=== PATIENT | female | born 1960 | race Two or more races ===

== ENCOUNTER 2018-10-11 09:12 | Outpatient (CLI) | payer OTHER ==
[~2018-10-11] VITALS: Ht 167.6 cm; Wt 135.6 kg
[2018-10-11 12:43] VITALS: BP 121/61
[2018-10-11] MEDS ORDERED: VITAMIN D250000 UNI1 ORAL (12:50)
[2018-10-11] MEDS ORDERED: BUPROPION HCL75 MG PO (12:50)
[2018-10-11] MEDS ORDERED: CALCIUM600 M1 PO (12:50)
[2018-10-11] MEDS ORDERED: HUMULIN 70100 UNIT/3 SQ (12:50)
[2018-10-11] MEDS ORDERED: ENALAPRIL MALEAT5 MG ORAL (12:50)
[2018-10-11] MEDS ORDERED: PROPRANOLOL HCL10 MG ORAL (12:50)
[2018-10-11] MEDS ORDERED: MULTIVITAMINS1 EAC2 ORAL (12:50)
[2018-10-11] MEDS ORDERED: GABAPENTIN400 MG ORAL (12:50)
--- NOTE | 2018-10-11 15:55 | GI Initial Consult Note ---
History of Present Illness General Date patient seen: Oct 11, 2018 Time patient seen: 15:52 Referring physician: HMO Reason for Consultation: abdominal pain Present Illness HPI 58-year-old female presents today with complaint of a right lower quadrant abdominal pain and abdominal bloating. The patient had a colonoscopy either in 2015 or 2016 which she states was normal. Denies any unintentional weight loss or changes in dietary habits. No signs of abuse or neglect. Patient is not fall risk. Home Meds Reported Medications Gabapentin* (GABAPENTIN*) 400 Mg Capsule, 400 MG ORAL THREE TIMES A DAY, CAP 0 Refills 10/11/18 Multivitamins* (MULTIVITAMINS*) 1 Each Tablet, 1 TAB ORAL DAILY, TAB 0 Refills 10/11/18 Ergocalciferol (Vitamin D2)* (VITAMIN D*) 50,000 Unit Capsule, 35757 UNIT ORAL ONCE A WEEK, CAP 10/11/18 Enalapril Maleate* (ENALAPRIL MALEATE*) 5 Mg Tablet, ORAL EVERY 12 HOURS, TAB 10/11/18 Propranolol Hcl* (INDERAL*) 10 Mg Tablet, ORAL BID, #90 TAB 0 Refills 10/11/18 Bupropion Hcl* (BUPROPION HCL*) 75 Mg Tablet, 150 MG PO TID, TAB 10/11/18 Calcium Carbonate (CALCIUM) 600 Mg Tablet, 600 MG PO DAILY, TAB 10/11/18 Hum Insulin NPH/Reg Insulin Hm (Humulin 70/30 Kwikpen) 100 Unit/1 Ml Insuln.pen , SQ BIDAC, EA 10/11/18 Med list reviewed/reconciled: Yes Allergies: Coded Allergies: PENICILLINS (Verified Allergy, Mild, Itching, 10/11/18) Patient History History Provided By: Patient, Medical Record [facility] Narrative Hypertension Diabetes mellitus Back pain Denies any surgical history Pertinent Family History: none Social History: Denies: smoking, alcohol use, drug use, other Review of Systems All Other Systems: negative except mentioned in HPI Physical Exam Vital Signs Date Time Temp Pulse Resp B/P (MAP) Pulse Ox O2 Delivery O2 Flow Rate FiO2 10/11/18 12:43 97.8 61 16 121/61 93 Sp02 EP Interpretation: reviewed, normal General Appearance: well appearing, no apparent distress, alert Head: normocephalic EENT: PERRL/EOMI, normal ENT inspection Neck: supple Respiratory: normal breath sounds, no respiratory distress Cardiovascular: normal rate Gastrointestinal: normal inspection, non tender, soft, normal bowel sounds, non -distended Rectal: deferred Genitourinary: no CVA tenderness Musculoskeletal: normal inspection, back normal Neurologic: normal inspection, alert, oriented x3, responsive Psychiatric: normal inspection, judgement/insight normal, memory normal Skin: normal inspection, normal color, no rash, warm/dry, palpation normal, well hydrated Lymphatic: normal inspection, no adenopathy GI: Plan Problems: (1) Abdominal pain (2) Hypertension (3) Back pain (4) Diabetes mellitus (5) Abdominal bloating (6) GERD (gastroesophageal reflux disease) Plan EGD/to be scheduled pending PA, will contact patient. - NPO @ [place] day prior procedure explained. Will follow with additional recs post procedure. Omeprazole 40 mg daily Seen with Dr. Mahoney. Thank you for this patient referral. The patient was seen and examined at bedside and all new and available data was reviewed in the patients chart. I agree with the above findings, impression and plan. (Patient seen earlier today. Signature stamp does not reflect patient encounter time.). - MD Brynn David,[facility] Oct 11, 2018 15:55
== END 2018-10-11 09:42 | disposition home or self-care (01) ==
LOC: PAN 09:12
DX: R10.31 Right lower quadrant pain (principal); R14.0 Abdominal distension (gaseous); I10 Essential (primary) hypertension; M54.9 Dorsalgia, unspecified; E11.9 Type 2 diabetes mellitus without complications; Z79.4 Long term (current) use of insulin; K21.9 Gastro-esophageal reflux disease without esophagitis; Z88.0 Allergy status to penicillin
CPT/HCPCS: 99202

== ENCOUNTER 2018-12-20 08:58 | Outpatient (CLI) | payer OTHER ==
[~2018-12-20 08:58] MED LIST: BUPROPION HCL75 MG PO; CALCIUM600 M1 PO; ENALAPRIL MALEAT5 MG ORAL; GABAPENTIN400 MG ORAL; HUMULIN 70100 UNIT/3 SQ; MULTIVITAMINS1 EAC2 ORAL; PROPRANOLOL HCL10 MG ORAL; VITAMIN D250000 UNI1 ORAL
[2018-12-20 09:11] VITALS: BP 122/61
--- NOTE | 2018-12-20 09:34 | General Progress Note ---
Assessment/Plan Problem List: (1) Gastritis ICD Codes: K29.70 - Gastritis, unspecified, without bleeding SNOMED: 5906652 (2) Gastric varices ICD Codes: I86.4 - Gastric varices SNOMED: 30314405 (3) GERD (gastroesophageal reflux disease) ICD Codes: K21.9 - Gastro-esophageal reflux disease without esophagitis SNOMED: 408804614 (4) Hypertension ICD Codes: I10 - Essential (primary) hypertension SNOMED: 25207087 (5) Abdominal pain ICD Codes: R10.9 - Unspecified abdominal pain SNOMED: 40883183 (6) Abdominal bloating ICD Codes: R14.0 - Abdominal distension (gaseous) SNOMED: 552280769 (7) Back pain ICD Codes: M54.9 - Dorsalgia, unspecified SNOMED: 078607680 (8) Diabetes mellitus ICD Codes: E11.9 - Type 2 diabetes mellitus without complications SNOMED: 55307222 Assessment/Plan needs CT of abd and pelvic before bariatric surg a copy of EGd report was given to the patient to take to her surgeon Subjective ROS Limited/Unobtainable: Yes Allergies: Coded Allergies: PENICILLINS (Verified Allergy, Mild, Itching, 10/11/18) Objective Last 24 Hour Vital Signs Date Time Temp Pulse Resp B/P (MAP) Pulse Ox O2 Delivery O2 Flow Rate FiO2 12/20/18 09:11 98.2 65 16 122/61 95 General Appearance: alert EENT: normal ENT inspection Neck: supple Cardiovascular: normal rate Respiratory/Chest: decreased breath sounds Abdomen: normal bowel sounds, non tender, soft Extremities: non-tender Eric Mahoney MD Dec 20, 2018 09:34
== END 2018-12-20 10:58 | disposition home or self-care (01) ==
LOC: PAN 08:58
DX: K29.70 Gastritis, unspecified, without bleeding (principal); I86.4 Gastric varices; K21.9 Gastro-esophageal reflux disease without esophagitis; I10 Essential (primary) hypertension; R10.9 Unspecified abdominal pain; R14.0 Abdominal distension (gaseous); M54.9 Dorsalgia, unspecified; E11.9 Type 2 diabetes mellitus without complications; Z88.0 Allergy status to penicillin